=== PATIENT | male | born 1975 | race Caucasian/White ===

== ENCOUNTER 2021-11-10 20:50 | Emergency (ER) | payer MEDICAID ==
[~2021-11-10] VITALS: Ht 167.6 cm; Wt 56.8 kg
[2021-11-10 21:30] LABS: BASOPHILS % (AUTO) 0.2 % (0-1); EOSINOPHILS % (AUTO) 0.2 % (0-6); HEMATOCRIT 38.6 % (42.0-52.0); HEMOGLOBIN 12.9 g/dl (14.0-17.9); LYMPHOCYTES # (AUTO) 1.7 X10'3 (1.1-4.8); LYMPHOCYTES % (AUTO) 10.4 % (21-51); MEAN CORPUSCULAR HEMOGLOBIN 30.4 PG (27.0-31.0); MEAN CORPUSCULAR HGB CONC 33.4 g/dL (33.0-36.5); MEAN CORPUSCULAR VOLUME 91.1 FL (78-98); MEAN PLATELET VOLUME 7.5 FL (7.4-10.4); MONOCYTES # (AUTO) 0.9 X10'3 (0-0.9); MONOCYTES % (AUTO) 5.8 % (2-12); NEUTROPHILS # (AUTO) 13.7 X10'3 (1.8-7.7); NEUTROPHILS % (AUTO) 83.4 % (42-75); PLATELET COUNT 262 X10'3 (140-440); RED BLOOD COUNT 4.24 X10'6 (4.70-6.10); RED CELL DISTRIBUTION WIDTH 13.9 % (11.5-14.5); WHITE BLOOD COUNT 16.4 X10'3 (4.5-11.0)
[2021-11-10] MEDS ORDERED: diphenhydrAMINE 50 mg/ml inj IV ONE (21:30)
[2021-11-10] MEDS ORDERED: metoclopramide 5 mg/ml inj IV ONE (21:30)
[2021-11-10 21:45] LABS: ALANINE AMINOTRANSFERASE 21 U/L (12-78); ALBUMIN 4.2 G/DL (3.4-5.0); ALBUMIN/GLOBULIN RATIO 1.3 (1.1-1.5); ALKALINE PHOSPHATASE 82 IU/L (46-116); ANION GAP 15 (8-16); ASPARTATE AMINO TRANSFERASE 18 U/L (10-37); BILIRUBIN,TOTAL 0.5 MG/DL (0.1-1.0); BLOOD UREA NITROGEN 14 MG/DL (7-18); CALCIUM 9.1 MG/DL (8.5-10.1); CHLORIDE 103 MMOL/L (99-107); CREATININE 1.17 MG/DL (0.60-1.10); GLUCOSE 166 MG/DL (70-104); LIPASE 134 U/L (73-393); POTASSIUM 3.7 MMOL/L (3.5-5.1); SODIUM 142 MMOL/L (135-145); TOTAL CARBON DIOXIDE 23.9 MMOL/L (24-32); TOTAL PROTEIN 7.5 G/DL (6.4-8.2); eGFR 67 ML/MIN
[2021-11-10] MEDS ORDERED: mag hydrox/Alum hydrox/simeth 30ml oral suspension PO ONE (22:15)
[2021-11-10] MEDS ORDERED: normal saline 1000ml 1,000 ML IV ONE (22:15)
[2021-11-10] MEDS ORDERED: LIDOcaine Viscous 15ml cup MM ONE (22:15)
[2021-11-10] MEDS ORDERED: pantoprazole 40MG/NS 100ML BAG 100 ML IV ONE (22:15)
[2021-11-10] MEDS ORDERED: proCHLORperazine 10 MG/2 ml inj IV ONE (22:15)
[2021-11-10] MEDS ORDERED: famotidine/PF 10 mg/ml inj IV ONE (22:15)
[2021-11-10 23:31] LABS: CLARITY,URINE CLOUDY (Clear); COLOR,URINE YELLOW (Yellow); GLUCOSE, URINE NEGATIVE (Neg); KETONES,URINE >=80 mg/dl (Neg); LEUKOCYTE ESTERASE ,URINE NEGATIVE (Neg); NITRITES, URINE NEGATIVE (Neg); OCCULT BLOOD,URINE TRACE-INTACT (Neg); PROTEIN,URINE NEGATIVE (Neg)
[2021-11-10] MEDS ORDERED: haloperidol lactate 5mg/ml inj IM ONE (23:35)
[2021-11-10] MEDS ORDERED: LORazepam 2 mg/ml vial IV ONE (23:35)
[2021-11-10 23:41] LABS: UA COLLECTION TYPE NON-SPECIFIED
[2021-11-10 23:42] LABS: AMORPHOUS PHOSPHATES 4+; BACTERIA,URINE FEW /HPF (Neg); RBC,URINE 0-2 /HPF (0-2); SQUAMOUS EPITHELIAL CELL,UR FEW /LPF (FEW); WBC,URINE 0-4 /HPF (0-4)
[2021-11-11] MEDS ORDERED: ONDA8TAB13 PO (01:00)
[2021-11-11] MEDS ORDERED: PANT-47 PO (01:00)
[2021-11-11 01:20] VITALS: BP 106/36
== END 2021-11-11 01:30 | disposition home or self-care (01) ==
LOC: ER 20:51
DX: R11.10 Vomiting, unspecified (principal); R10.10 Upper abdominal pain, unspecified; Z79.899 Other long term (current) drug therapy
CPT/HCPCS: 36415; 74176; 80053; 81001; 83690; 84145; 85025; 96361; 96372; 96374; 96375; 99284; C9113; J0780; J1200; J1630; J2060; J2765; J3490; J7030